=== PATIENT | female | born 1955 | race Caucasian/White ===

== ENCOUNTER 2017-09-03 20:12 | Emergency (ER) | payer OTHER ==
--- NOTE | 2017-09-03 20:39 | EDM.PDOC ---
ED HPI GENERAL MEDICAL PROBLEM - General Chief Complaint: Lower Extremity Injury/Pain Stated Complaint: HURT RT ANKLE Time Seen by Provider: 09/03/17 20:35 Source of Information: Reports: Patient History Limitations: Reports: No Limitations - History of Present Illness INITIAL COMMENTS - FREE TEXT/NARRATIVE: Randi is an otherwise healthy 62-year-old female who presents to the emergency Department today with complaints of right ankle pain and swelling after [place]. Patient's ankle twisted and then she landed on her left knee. Patient has taken ibuprofen around 1800, she reports that her pain is fairly well controlled and she does not move, any nausea or weightbearing makes her pain worse. Patient denies any other injuries. Onset: Today, Sudden right ankle Pain Score (Numeric/FACES): 4 - Related Data Allergies Allergy/AdvReac Type Severity Reaction Status Date / Time erythromycin base Allergy Nausea and Verified 09/03/17 20:37 Vomiting Review of Systems - Review of Systems Review Of Systems: ROS reveals no pertinent complaints other than HPI. ED EXAM, GENERAL - Physical Exam Exam: See Below Exam Limited By: No Limitations General Appearance: Alert, WD/WN, No Apparent Distress Throat/Mouth: Normal Inspection, Normal Oropharynx Head: Atraumatic Neck: Normal Inspection Respiratory/Chest: No Respiratory Distress Cardiovascular: Regular Rate, Rhythm Extremities: Joint Swelling (Lateral malleolus right ankle is significantly swollen, distal proximal pulses are intact, there is a small abrasion but no obvious laceration or signs of open fracture. Patient does have a small abrasion to her left knee, patella is midline with no tenderness on exam, no swelling or ecchymosis.) Neurological: Alert, Oriented Psychiatric: Normal Affect, Normal Mood Skin Exam: Warm, Dry Lymphatic: No Adenopathy Course - Vital Signs Last Recorded V/S: Last Vital Signs Temp 36.3 C 09/03/17 20:43 Pulse 103 H 09/03/17 20:43 Resp 18 09/03/17 20:43 BP 150/74 H 09/03/17 20:43 Pulse Ox 98 09/03/17 20:43 Randi is an otherwise healthy 62-year-old female who presents to the emergency Department today with complaints of right ankle pain and swelling and mild left knee pain after she [place] and fell twisting her right ankle and landing on her left knee. Please refer to history of present illness and focused exam. Patient arrives here mildly tachycardic and hypertensive is otherwise hemodynamically stable and afebrile. I did offer patient additional pain medication including Tylenol as well as opioid medications which she declined. X-rays obtained of right ankle, distal fibula fracture and left 5th proximal metatarsal fracture, both mildly displaced. stirrup/posterior short leg fiberglass splint applied. Negative left knee xray CMS intact Crutches non weight bearing Follow up with ortho in [facility] by end of the week. Ibuprofen/Tylenol for pain. [place] for severe pain RICE discussed and encouraged as well as reasons to return to the ED. Patient is agreeable to plan of care and discharged in stable condition with driving. - Orders/Labs/Meds Orders: Active Orders 24 hr Category Date Time Status Ankle Min 3V Rt [CR] Stat Exams 09/03/17 20:37 Taken Knee 3V Lt [CR] Stat Exams 09/03/17 21:30 Ordered Meds: Medications Discontinued Medications Generic Name Dose Route Start Last Admin Trade Name Saad PRN Reason Stop Dose Admin Acetaminophen 1,000 mg 09/03/17 20:45 09/03/17 20:49 Tylenol Extra Strength PO 09/03/17 20:46 1,000 mg ONETIME ONE Administration Departure - Departure Time of Disposition: 22:30 Disposition: Home, Self-Care 01 Condition: Good Clinical Impression: Closed fracture of metatarsal bone, Closed fracture of ankle Fracture of distal fibula Qualifiers: Encounter type: initial encounter Fracture type: closed Fracture morphology: unspecified fracture morphology Laterality: right Qualified Code(s): S82.831A - Other fracture of upper and lower end of right fibula, initial encounter for closed fracture - Discharge Information Instructions: Cast or Splint Care, Adult, [id number], Crutch Use, Adult, Easy -to-Read, Ankle Fracture, [id number], Metatarsal Fracture Referrals: PCP,None [Primary Care Provider] - Forms: ED Department Discharge Additional Instructions: Crutches non weight bearing Ibuprofen 600 mg every 6 hours [place] for severe pain Follow up with orthopedics later this week in [place] [facility], [place] and elevate as much as possible. - My Orders Last 24 Hours: My Active Orders 09/03/17 20:37 Ankle Min 3V Rt [CR] Stat 09/03/17 21:30 Knee 3V Lt [CR] Stat - Assessment/Plan Last 24 Hours: My Active Orders 09/03/17 20:37 Ankle Min 3V Rt [CR] Stat 09/03/17 21:30 Knee 3V Lt [CR] Stat
[2017-09-03] MEDS ORDERED: Acetaminophen 500 MG Tab PO ONE (20:45)
--- NOTE | 2017-09-04 10:13 | CR ---
Ankle Min 3V Rt CLINICAL HISTORY: Pain and swelling FINDINGS: The soft tissues are swollen. There is a fracture of the distal fibula. The there is some a symmetry in the ankle mortise with widening laterally. There is a transverse fracture through the bas e of the fifth metatarsal. Impression: Fracture of the tip of the distal fibula Asymmetry in the ankle mortise suggests a lateral joint laxity Transverse fracture through the base of the fifth metatarsal
--- NOTE | 2017-09-04 10:14 | CR ---
Knee 3V Lt CLINICAL HISTORY: Pain and swelling FINDINGS: No acute fracture or dislocation is noted. There are no osseous lesions. There is narrowing of the medial joint space. Impression: Mild osteoarthritic change No acute fracture or dislocation
== END 2017-09-03 22:20 | disposition home or self-care (01) ==
LOC: JP.ED 20:12
DX: S82.831A Other fracture of upper and lower end of right fibula, initial encounter for closed fracture (principal); S92.351A Displaced fracture of fifth metatarsal bone, right foot, initial encounter for closed fracture; Z88.1 Allergy status to other antibiotic agents; W10.9XXA Fall (on) (from) unspecified stairs and steps, initial encounter
CPT/HCPCS: 29515; 73562; 73610; 99284; A9270